=== PATIENT | female | born 1975 | race African-American/Black ===

== ENCOUNTER 2017-09-22 12:00 | Emergency (ER) | payer OTHER ==
[2017-09-22 12:15] VITALS: BP 118/63; PULSE 68; TEMP 99.7; BMI 22.1
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
== END 2017-09-22 16:36 | disposition home or self-care (01) ==
LOC: JER 12:00
DX: M25.512 Pain in left shoulder (principal); M25.532 Pain in left wrist; M25.542 Pain in joints of left hand; M25.552 Pain in left hip; V03.90XA Pedestrian on foot injured in collision with car, pick-up truck or van, unspecified whether traffic or nontraffic accident, initial encounter; Y92.481 Parking lot as the place of occurrence of the external cause; Y93.89 Activity, other specified; Y99.8 Other external cause status
CPT/HCPCS: 71020-TC; 71101-TC; 72170-TC; 73030-TC-LT; 73110-TC-LT; 73130-TC-LT; 73140-TC-LT; 73502-TC-LT; 99281-25